=== PATIENT | female | born 1990 | race Caucasian/White ===

== ENCOUNTER 2016-05-04 14:21 | Outpatient (CLI) | payer BC ==
[~2016-05-04] VITALS: Ht 149.9 cm; Wt 67.3 kg
[2016-05-04] MEDS ORDERED: TERBUTALINE 1 ML ONE (14:46)
[2016-05-04 14:55] VITALS: Ht 149.9 cm; Wt 67.3 kg
[2016-05-04 14:56] VITALS: BP 131/73; PULSE 100; RESP 16
[2016-05-04] MEDS ORDERED: LACTATED RINGER'S 1,000 ML IV PRN (15:00)
[2016-05-04] MEDS ORDERED: LACTATED RINGER'S 500 ML IV ONE (15:00)
[2016-05-04] MEDS ORDERED: TERBUTALINE 1 MG/ML INJ SC ONE (15:00)
--- NOTE | 2016-05-04 15:46 | RADRPT ---
PROCEDURE: US OB. CLINICAL INDICATION: Size and dates , labor TECHNIQUE: Multiple sonographic images of the pelvis and gravid uterus were obtained. The images were reviewed on a PACS workstation. Transvaginal images of the cervix were obtained. COMPARISON: No prior studies are available for comparison. FINDINGS: The cervix is closed with a length of 3.6 cm. There is a single viable intrauterine gestation. Cardiac activity is present with 146 beats per min maurilio. There is a breech presentation. The placenta is anterior. There is no evidence for an abruption or placenta previa. There is a normal amount of amniotic fluid with a MVP = 6.1 cm. Measurements were made in order to determine age. The results are as follows: BPD =6.2 cm HC =22.6 cm AC =21 cm FL =4.5 cm Estimated gestational age of approximately 25 weeks and 0 days based on ultrasound measurements. Clinical age: 24 weeks and 4 days. The estimated date of delivery is 08/17/16, based on ultrasound measurements. The EFW = 775 g, 67%, based on LMP age. RPTAT: AA IMPRESSION: Single viable intrauterine gestation of approximately 25 weeks and 0 days based on ultrasound measu rements. .Lennox Ovalle MD, Date Time Electronically viewed and signed by .Lennox Ovalle MD, on 05/04/2016 15:46 .S/
[2016-05-04 15:47] LABS: ADD UMIC NO; URINE BILIRUBIN (Dip) NEGATIVE (NEGATIVE); URINE BLOOD (Dip) NEGATIVE (NEGATIVE); URINE COLOR LT. YELLOW (YELLOW); URINE GLUCOSE (Dip) NEGATIVE (NEGATIVE); URINE KETONES (Dip) NEGATIVE (NEGATIVE); URINE LEUKOCYTE ESTERASE (Dip) NEGATIVE (NEGATIVE); URINE NITRITE (Dip) NEGATIVE (NEGATIVE); URINE TOTAL PROTEIN (Dip) NEGATIVE (NEGATIVE); URINE UROBILINOGEN (Dip) 0.2 E.U./dL (0.1-1.0)
[2016-05-04 16:01] LABS: BARBITURATES Negative (NEGATIVE); BENZODIAZEPINES Negative (NEGATIVE)
[2016-05-04 16:02] LABS: OPIATES Negative (NEGATIVE)
[2016-05-04 16:04] LABS: CANNABINOIDS Negative (NEGATIVE); COCAINE Negative (NEGATIVE)
[2016-05-04] MEDS ORDERED: PRENAT PO (17:09)
--- NOTE | 2016-05-04 17:09 | QN ---
Documentation Comment OB Triage 25+WKS for R/o labor NST reassuring [place] some irritabilitty CXL>3.6cm FFN neg received IV hydration Discharge annie messerions Her questions ansswered SAMREEN FNIE M.D. May 04, 2016 17:09
== END 2016-05-04 17:33 | disposition home or self-care (01) ==
LOC: OBT 14:21 → L-D 14:22 → OBT 17:33
PROVIDERS: ATTEND Obstetrics & Gynecology
DX: O60.02 Preterm labor without delivery, second trimester (principal); O26.842 Uterine size-date discrepancy, second trimester; Z3A.25 25 weeks gestation of pregnancy
CPT/HCPCS: 36415; 76815; 76817; 80307; 81003; 82731; 96360; 96361; G0463; J3105; J7120